=== PATIENT | female | born 1950 | race Caucasian/White ===

== ENCOUNTER 2016-11-07 11:27 | Emergency (ER) | payer MEDICARE, BC ==
[2016-11-07] MEDS ORDERED: Ondansetron 4 MG/2 ML SDV IVPUSH ONE (11:54)
[2016-11-07] MEDS ORDERED: Sodium Chloride 0.9% 10 ML Syringe FLUSH PRN (11:54)
[2016-11-07] MEDS ORDERED: HYDROmorphone 1 MG/ML Syringe IVPUSH ONE (11:55)
[2016-11-07] MEDS ORDERED: Ketorolac 30 MG/ML SDV IVPUSH ONE (11:55)
[2016-11-07] MEDS ORDERED: Sodium Chloride 0.9% 1,000 ML IV SCH (12:00)
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
[2016-11-07] MEDS ORDERED: Famotidine 20 MG/2 ML SDV IVPUSH ONE (13:27)
[2016-11-07] MEDS ORDERED: Alum Hydrox/Mag Hydrox/Simeth 30 ML, Lidocaine 2% 15 ML PO ONE ×2 (13:28)
[2016-11-07 13:44] VITALS: BP 160/74
--- NOTE | 2016-11-08 13:54 | CT ---
CT abdomen and pelvis Technique: Multiple axial sections were obtained from above the dome of the diaphragm inferiorly through the pubic symphysis. Intravenous and oral contrast was not utilized. Study has been performed as a renal stone protocol. Comparison: No previous study is available. Right sided hydronephrosis is seen. Dilated ureter is seen down to the bladder. Small calcification is identified within the distal right ureter at the UVJ measuring about 2 mm compatible with obstructing ureteral calculus. No other abnormal calcifications are seen within the ureters. Kidneys show no abnormal calcifications. Liver has an unremarkable noncontrast appearance. Spleen appears within normal limits. Adrenal glands show no nodule. Surgical clips are seen from prior cholecystectomy. No discrete abnormality within the pancreas is seen. Aorta shows atherosclerotic change which continues into the iliac vessels. No aneurysm is identified. No retroperitoneal adenopathy or mesenteric abnormalities are seen. Surgical material seen within the right lower abdomen compatible with previous appendectomy. No pelvic mass or adenopathy is seen. Bone window settings were reviewed showing degenerative change within the spine. Impression: 1. Right-sided hydronephrosis secondary to a 2 mm obstructing stone within the distal right ureter at the UVJ. 2. Other incidental findings as described above. Diagnostic code #3 I agree with preliminary report issued by [facility] (report finalized on 11/07/16, 1:56 PM Central Time)
--- NOTE | 2016-11-08 13:54 | CT ---
CT lumbar spine Technique: Multiple axial sections were obtained from above the T9-T10 disc inferiorly to the L5-S1 disc. Reconstructed coronal and sagittal images were reviewed. Comparison: No previous lumbar spine imaging is available. Findings: Endplate concavities seen inferiorly within L1. Superior endplate concavity noted at L3. Both these findings are most likely old. Disc space narrowing with vacuum phenomena noted at L4-L5. Minimal spondylolisthesis seen at L4-L5 due to severe degenerative apophyseal change. Severe disc space narrowing noted at L5-S1. Spondylolisthesis noted at L5-S1 measuring around 6.8 mm. These findings are due to severe degenerative apophyseal change. Spondylolytic defects are also seen at L5-S1. No acute fracture is identified. No bony central or bony neural foraminal stenosis is seen. Impression: 1. Degenerative change as described above. Findings worse at L5-S1. Diagnostic code #3 I agree with preliminary report issued by [facility] (report finalized on 11/07/2016, 2:00 PM Central Time)
== END 2016-11-07 14:10 | disposition home or self-care (01) ==
LOC: JD.ED 11:27
DX: N20.2 Calculus of kidney with calculus of ureter (principal); Z87.442 Personal history of urinary calculi
CPT/HCPCS: 72131; 74176; 96361; 96374; 96375; 99284; A9270; J1170; J1885; J2405; J7040; J7050